=== PATIENT | male | born 1980 | race Caucasian/White ===

== ENCOUNTER 2021-04-15 20:24 | Inpatient (IN) | payer OTHER ==
[~2021-04-15] VITALS: Ht 177.8 cm; Wt 118.6 kg
[~2021-04-15 20:24] MED LIST: ELIQUIS5 MG PO; PRAVACHOL20 MG PO; PRINIVIL20 MG PO; WELLBUTRIN XL150 MG PO; ZANTAC150 MG PO
[2021-04-15 22:36] LABS: BASOPHIL 0.4 % (0-2); BILIRUBIN NEGATIVE (NEGATIVE); BLOOD NEGATIVE Ery/uL (NEGATIVE); CLARITY CLEAR (CLEAR); COLOR YELLOW (YELLOW); EOSINOPHIL 0.2 % (0-5); GLUCOSE (U) NORMAL (NORMAL); HCT 45.7 % (42.0-52.0); HGB 14.9 g/dl (13.2-18.0); LEUKOCYTES NEGATIVE Leu/uL (NEGATIVE); LYMPHOCYTE 15.5 % (15-48); MCH 29.4 pg (25.0-31.0); MCHC 32.6 g/dL (32.0-36.0); MCV 90.3 fL (78.0-100.0); MONOCYTE 7.2 % (0-12); MPV 9.9 fL (6.0-9.5); NEUTROPHIL 76.3 % (41-80); NITRITE NEGATIVE (NEGATIVE); NRBC 0; PLT 246 K/uL (150-400); PROTEIN NEGATIVE (NEGATIVE); RBC 5.06 M/uL (4.70-6.00); RDW 13.4 % (11.5-14.0); SPECIFIC GRAVITY >=1.030 (1.001-1.030); UROBILINOGEN 0.2 mg/dL (0.2-1.0); WBC 19.6 K/uL (4.0-10.5)
[2021-04-15 22:51] LABS: ALBUMIN 3.2 g/dL (3.4-5.0); BILIRUBIN - TOTAL 1.2 mg/dL (0.2-1.0); BUN/CREAT RATIO (CALC) 8.8 RATIO; CREATININE 1.13 mg/dL (0.67-1.17); GLOBULIN (CALCULATION) 4.1 g/dL; POTASSIUM 4.4 mmol/L (3.5-5.1); TOTAL PROTEIN 7.3 g/dL (6.4-8.2)
[2021-04-16] MEDS ORDERED: ATENOLOL25 MG PO (05:39)
[2021-04-16] MEDS ORDERED: METFORMIN HCL500 MG PO (05:40)
[2021-04-16] MEDS ORDERED: LIPITOR40 MG PO (05:40)
[2021-04-16 07:50] LABS: BASOPHIL 0.3 % (0-2); EOSINOPHIL 0.5 % (0-5); HCT 40.9 % (42.0-52.0); HGB 13.6 g/dl (13.2-18.0); LYMPHOCYTE 15.9 % (15-48); MCH 29.8 pg (25.0-31.0); MCHC 33.3 g/dL (32.0-36.0); MCV 89.5 fL (78.0-100.0); MONOCYTE 7.9 % (0-12); MPV 10.6 fL (6.0-9.5); NEUTROPHIL 74.7 % (41-80); NRBC 0; PLT 238 K/uL (150-400); RBC 4.57 M/uL (4.70-6.00); RDW 13.4 % (11.5-14.0); WBC 16.6 K/uL (4.0-10.5)
[2021-04-16 08:12] LABS: BUN/CREAT RATIO (CALC) 9.4 RATIO; CREATININE 0.96 mg/dL (0.67-1.17); POTASSIUM 3.8 mmol/L (3.5-5.1)
[2021-04-17 05:54] LABS: BASOPHIL 0.4 % (0-2); EOSINOPHIL 1.7 % (0-5); HCT 36.7 % (42.0-52.0); LYMPHOCYTE 23.6 % (15-48); MCH 29.7 pg (25.0-31.0); MCHC 32.7 g/dL (32.0-36.0); MCV 90.8 fL (78.0-100.0); MONOCYTE 7.2 % (0-12); MPV 9.8 fL (6.0-9.5); NEUTROPHIL 66.6 % (41-80); NRBC 0; PLT 203 K/uL (150-400); RBC 4.04 M/uL (4.70-6.00); RDW 13.3 % (11.5-14.0); WBC 11.2 K/uL (4.0-10.5)
[2021-04-17 06:12] LABS: BUN/CREAT RATIO (CALC) 8.3 RATIO; CREATININE 0.96 mg/dL (0.67-1.17)
--- NOTE | 2021-04-17 15:48 | NUR ---
04/17/21 Mr. Amezcua and his 21 y/o daughter. He is employed and able to meet his financial obligations. - No discharge planning needs are anticipated.
[2021-04-18 07:26] LABS: BASOPHIL 0.5 % (0-2); EOSINOPHIL 3.1 % (0-5); HCT 36.2 % (42.0-52.0); HGB 11.8 g/dl (13.2-18.0); LYMPHOCYTE 28.8 % (15-48); MCH 29.6 pg (25.0-31.0); MCHC 32.6 g/dL (32.0-36.0); MCV 90.7 fL (78.0-100.0); MONOCYTE 7.9 % (0-12); MPV 10.1 fL (6.0-9.5); NEUTROPHIL 59.1 % (41-80); NRBC 0; PLT 235 K/uL (150-400); RBC 3.99 M/uL (4.70-6.00); RDW 13.1 % (11.5-14.0); WBC 8.2 K/uL (4.0-10.5)
[2021-04-18 07:46] LABS: BUN/CREAT RATIO (CALC) 8.8 RATIO; CREATININE 0.91 mg/dL (0.67-1.17); POTASSIUM 3.9 mmol/L (3.5-5.1)
[2021-04-18] MEDS ORDERED: METRONIDAZOLE500 MG PO (12:21)
[2021-04-18] MEDS ORDERED: CIPRO500 MG PO (12:21)
[2021-04-18] MEDS ORDERED: ULTRAM50 MG PO (12:21)
== END 2021-04-18 13:24 | disposition home or self-care (01) | DRG 391 ==
LOC: FER 20:24 → FMS 04-16 04:53
PROVIDERS: Emergency Medicine; Nurse Practitioner; ADMIT Internal Medicine
DX: K57.20 Diverticulitis of large intestine with perforation and abscess without bleeding (principal); K65.8 Other peritonitis; G47.33 Obstructive sleep apnea (adult) (pediatric); Z20.822 Contact with and (suspected) exposure to COVID-19; E78.00 Pure hypercholesterolemia, unspecified; E66.9 Obesity, unspecified; I10 Essential (primary) hypertension; E11.9 Type 2 diabetes mellitus without complications; Z86.711 Personal history of pulmonary embolism; Z86.718 Personal history of other venous thrombosis and embolism; Z79.01 Long term (current) use of anticoagulants; Z79.899 Other long term (current) drug therapy; Z98.890 Other specified postprocedural states; Z99.81 Dependence on supplemental oxygen; Z87.891 Personal history of nicotine dependence
CPT/HCPCS: 36415; 80048; 80053; 81003; 83036; 83605; 83690; 85025; 93005; J1170; J2405; J2543; J7030; Q9967; U0002

== ENCOUNTER → 2021-12-25 | Day surgery (SDC) | payer OTHER ==
[~2021-12-25] VITALS: Ht 177.8 cm; Wt 118.5 kg
[~2021-12-25] MED LIST changes: +ATENOLOL25 MG PO; +CIPRO500 MG PO; +LIPITOR40 MG PO; +METFORMIN HCL500 MG PO; +METRONIDAZOLE500 MG PO; +ULTRAM50 MG PO
== END | disposition home or self-care (01) ==
LOC: FAS 07:59
DX: K57.30 Diverticulosis of large intestine without perforation or abscess without bleeding (principal); D12.0 Benign neoplasm of cecum; K62.1 Rectal polyp; I82.409 Acute embolism and thrombosis of unspecified deep veins of unspecified lower extremity; I10 Essential (primary) hypertension; E66.01 Morbid (severe) obesity due to excess calories; E11.9 Type 2 diabetes mellitus without complications; E78.00 Pure hypercholesterolemia, unspecified; F17.210 Nicotine dependence, cigarettes, uncomplicated; Z79.01 Long term (current) use of anticoagulants; Z80.0 Family history of malignant neoplasm of digestive organs
CPT/HCPCS: J2704; J7120